=== PATIENT | female | born 1950 | race Hispanic/Latino ===

== ENCOUNTER 2017-11-29 12:37 | Emergency (ER) | payer MEDICARE, OTHER ==
[2017-11-29] MEDS ORDERED: Cyclobenzaprine 10 MG TAB ONE (13:32)
[2017-11-29] MEDS ORDERED: Ketorolac Tromethamine 30 MG/ML VIAL ONE (13:32)
--- NOTE | 2017-11-29 13:49 | RAD ---
2 VIEWS CERVICAL SPINE: Date: 11/29/17 INDICATION: Twisted neck too far trying to catch herself after losing her balance, now with neck pain. COMPARISON: None. FINDINGS: Cervical spine is evaluated to C7 vertebral level on the lateral projection. There is severe multilev el facet osteoarthritic change and disc degenerative disease seen involving the cervical spine. Preve rtebral soft tissues are normal appearing. Lateral masses are symmetric. Lung apices are clear. IMPRESSION: Severe multilevel spondylosis of the cervical spine. POS: [facility]
== END 2017-11-29 13:48 | disposition home or self-care (01) ==
LOC: ERS 12:37
DX: S16.1XXA Strain of muscle, fascia and tendon at neck level, initial encounter (principal); Z86.711 Personal history of pulmonary embolism; E78.00 Pure hypercholesterolemia, unspecified; I25.10 Atherosclerotic heart disease of native coronary artery without angina pectoris; M81.0 Age-related osteoporosis without current pathological fracture; W01.198A Fall on same level from slipping, tripping and stumbling with subsequent striking against other object, initial encounter
CPT/HCPCS: 72040; 96372; J1885

== ENCOUNTER 2018-03-28 07:50 | Outpatient (CLI) | payer MEDICARE, MEDICAID | END 2018-03-28 07:51 | disposition home or self-care (01) | LOC: BICMAMMO 07:50 | PROVIDERS: ATTEND Student in an Organized Health Care Education/Training Program | DX: Z13.820 Encounter for screening for osteoporosis (principal) | CPT/HCPCS: 77080 ==

== ENCOUNTER 2018-05-05 09:53 | Observation (INO) | payer MEDICARE, MEDICAID ==
[2018-05-05] MEDS ORDERED: ISOVUE-370 76%-LOCM 1 ML ONE (10:02)
[2018-05-05 10:29] LABS: #Basophils 0.1 thou/uL (0.0-0.2); #Eosinphils 0.3 thou/uL (0.0-0.7); #Lymphocytes 2.3 thou/uL (1.20-3.40); #Monocytes 0.7 thou/uL (0.11-0.59); #Neutrophils 4.4 thou/uL (1.40-6.50); %Basophils 0.8 % (0.0-1.0); %Eosinophils 3.4 % (0.0-10.0); %Lymphocytes 29.3 % (21.0-51.0); %Monocytes 9.2 % (0.0-10.0); %Neutrophils 57.3 % (42.0-75.0); Hemoglobin 13.9 g/dL (12.0-16.0); Mean Corpuscular HGB CONC 33.9 g/dL (32.0-36.0); Mean Corpuscular Hemoglobin 31.1 pg (27.0-31.0); Mean Corpuscular Volume 91.8 fL (78.0-98.0); Mean Platelet Volume 8.5 fL (7.4-10.4); Platelet Count 225 thou/uL (130-400); RBC Distribution Width 12.4 % (11.5-14.5); Red Blood Cell (RBC) Count 4.47 mill/uL (4.20-5.40); White Blood Cell (WBC) Count 7.7 thou/uL (4.8-10.8)
--- NOTE | 2018-05-05 10:48 | RAD ---
CHEST 1 VIEW: HISTORY: Chest pain and shortness of breath. COMPARISON: Chest radiograph 11/07/15. FINDINGS: Lungs are hypoinflated with vascular crowding. There left basilar airspace opacity. No pneumothorax . No acute osseous abnormality. IMPRESSION: 1. Left basilar airspace opacity. 2. Lung hypoinflation with vascular crowding. The left basilar opacity may reflect infection or pul monary vessels. If the patient is not having signs of pneumonia, a followup 2 views of the chest wit h full inspiration may be beneficial. POS: [facility]
[2018-05-05 10:49] LABS: CK (CPK) 89 U/L (29-168); Lipase 7 U/L (8-78)
[2018-05-05 10:52] LABS: CKMB 1.1 ng/mL (0-6.6); Troponin I Less than 0.010 ng/mL (< 0.028)
[2018-05-05] MEDS ORDERED: Ondansetron HCl/PF 4 MG/2 ML Vial ONE (10:57)
[2018-05-05] MEDS ORDERED: Nitroglycerin 2% Ointment 1 INCH/1 GM Packet ONE (10:57)
[2018-05-05 11:02] LABS: Bilirubin Negative (Negative); Blood, Urine Negative (Negative); Clarity CLOUDY (Clear); Glucose, Urine (Dipstick) Negative (Negative); Leukocyte Negative (Negative); Nitrite Negative (Negative); Protein, Urine (Dipstick) Negative (Neg-Trace); Specific Gravity, Urine 1.017 (1.002-1.036); Urobilinogen 0.2 mg/dL (0.2-1.0)
[2018-05-05 14:24] LABS: ALT (SGPT) 20 U/L (8-55); AST (SGOT) 15 U/L (5-34); Albumin 4.4 g/dL (3.4-4.8); Alkaline Phosphatase 103 U/L (40-150); Anion Gap 17 mmol/L (10-20); BUN (Urea Nitrogen) 14 mg/dL (9.8-20.1); Bilirubin, Total 0.5 mg/dL (0.2-1.2); Calc. Creatinine Clearance 0 mL/min (70-130); Calcium 9.9 mg/dL (7.8-10.44); Carbon Dioxide 21 mmol/L (23-31); Chloride 105 mmol/L (98-107); Estimated GFR-MDRD 58; Glucose 139 mg/dL (80-115); Potassium 3.9 mmol/L (3.5-5.1); Protein, Total 7.4 g/dL (6.0-8.3); Sodium 139 mmol/L (136-145)
--- NOTE | 2018-05-05 15:45 | CT ---
CTA THORAX UTILIZING IV CONTRAST AND 3D PROTOCOL WITH 3D REFORMATTED IMAGING: INDICATIONS: Left-sided chest pain. COMPARISON: Prior study, dated 10/11/2015. FINDINGS: No definite central or segmental pulmonary embolus is demonstrated. There is a stable right paratrac heal lymph node, measuring up to 1.5 cm. No focal consolidation or pleural effusion is evident. There is scarring involving the medial right lower lobe, due to prominent bulky marginal osteophytes involving the thoracic spine. There is aneurysmal dilatation of the distal aortic arch, measuring up to 3.2 cm, which is stable to the prior exam. The visualized upper abdomen reveals no definite acute abnormality. No definite acute osseous abnormality is evident. IMPRESSION: 1. No central or segmental pulmonary embolus demonstrated. 2. Stable nonspecific, mildly enlarged right paratracheal lymph node, measuring up to 1.5 cm. 3. Stable mild dilatation of the distal aortic arch, measuring up to 3.2 cm. 4. Stable scarring within the medial right lower lobe, likely related to prominent adjacent marginal osteophytes off the thoracic spine. POS: [facility]
[2018-05-05 15:51] LABS: CKMB 0.9 ng/mL (0-6.6); Troponin I Less than 0.010 ng/mL (< 0.028)
[2018-05-05] MEDS ORDERED: Acetaminophen 325 MG TAB PO PRN ×2 (19:23→21:13)
[2018-05-05] MEDS ORDERED: Ondansetron ODT 4 MG TAB SL PRN (19:23)
[2018-05-05] MEDS ORDERED: Ondansetron HCl/PF 4 MG/2 ML Vial IVP PRN ×3 (19:23→21:43)
[2018-05-05] MEDS ORDERED: Sodium Chloride 0.9% 1,000 ML IV SCH (19:23)
[2018-05-05 19:28] VITALS: BMI 41.7
[2018-05-05 20:08] LABS: Troponin I Less than 0.010 ng/mL (< 0.028)
[2018-05-05] MEDS ORDERED: Zolpidem Tartrate 5 MG TAB PO PRN (21:13)
[2018-05-05] MEDS ORDERED: Milk Of Magnesia 30 ML UDCUP PO PRN (21:13)
[2018-05-05] MEDS ORDERED: Senokot 8.6 MG TAB PO PRN (21:13)
[2018-05-05] MEDS ORDERED: Ondansetron ODT 4 MG TAB PO PRN ×2 (21:13→21:43)
[2018-05-05] MEDS ORDERED: Mag-Al 1200 mg/1200 mg/30 ML UDCUP PO PRN (21:13)
[2018-05-05] MEDS ORDERED: HYDROcodone/Acetaminophen 5/325 mg Tablet PO PRN (21:13)
[2018-05-05] MEDS ORDERED: hydrALAZINE 20 MG/ML VIAL SLOW IVP PRN (21:43)
[2018-05-05] MEDS ORDERED: cloNIDine 0.1 MG TAB PO PRN (21:43)
[2018-05-05] MEDS ORDERED: Ibuprofen 800 MG TAB PO PRN (21:43)
[2018-05-05] MEDS ORDERED: Acetaminophen 500 MG TAB PO PRN (21:43)
--- NOTE | 2018-05-06 04:26 | HP ---
DATE OF ADMISSION: 05/05/2018 PRIMARY CARE PROVIDER: Alicia rios. CHIEF COMPLAINT: Left shoulder pain. HISTORY OF PRESENT ILLNESS: This is a 68-year-old female who presents to [facility] complaining of left shoulder pain over the last several days prior to this evaluation . The patient denied any specific direct injury, trauma, fever, chills or increased activity level. The patient denied taking any home remedies for relief of pain. The patient states she is right sosa d dominant. The patient denied any specific chest pain, cough, congestion, or diaphoresis. The kaci ent admits to some history of various joint pains treated with [id number] remedies for relief. The patient does admit to some abdominal discomfort which is transient without associated vomiting o r diarrhea. The patient denied any specific dysuria or recent urinary tract infections. The patient denies taking any chronic medications and denies any recent procedures or surgeries. In the emergen cy room, the patient underwent general evaluation including chest imaging showing no acute process. CT angiogram of the chest was also performed, ruling out a pulmonary embolus. Screening metabolic king rvey was essentially unremarkable and patient received intravenous normal saline, Zofran, transdermal nitroglycerin and aspirin 324 mg. The patient was transferred to the observation unit for further e valuation. PAST MEDICAL HISTORY: 1. History of pulmonary embolism in 2014, on previous Coumadin therapy. 2. Hypertension. 3. Osteoarthritis. 4. Obesity. PAST SURGICAL HISTORY: 1. Status post cholecystectomy. 2. Status post ear surgery. CURRENT MEDICATIONS: Reviewed and negative. ALLERGIES: No known drug allergies. FAMILY HISTORY: Positive for diabetes mellitus. SOCIAL HISTORY: The patient resides in [place], [place]. Disabled. No current alcohol, tobacco or illi cit drug use. Functional of all activities of daily living. REVIEW OF SYSTEMS: The following complete review of systems was negative, unless otherwise mentioned in the HPI or below: Constitutional: Weight loss or gain, ability to conduct usual activities. Ski n: Rash, itching. Eyes: Double vision, pain. ENT/Mouth: Nose bleeding, neck stiffness, pain, tend erness. Cardiovascular: Palpitations, dyspnea on exertion, orthopnea. Respiratory: Shortness of b reath, wheezing, cough, hemoptysis, fever or night sweats. Gastrointestinal: Poor appetite, abdomin al pain, heartburn, nausea, vomiting, constipation, or diarrhea. Genitourinary: Urgency, frequency, dysuria, nocturia. Musculoskeletal: Pain, swelling. Neurologic/Psychiatric: Anxiety, depression. Allergy/Immunologic: Skin rash, bleeding tendency. Otherwise negative except as stated per HPI. PHYSICAL EXAMINATION: VITAL SIGNS: On admission, blood pressure 157/67, pulse 63, respiratory rate 24, temperature 97.6 de grees Fahrenheit, O2 saturation 100% on room air. GENERAL APPEARANCE: This is a 68-year-old female, smiling, alert, in no acute distress. HEENT: Pupils are equal, round, and reactive to light and accommodation. Extraocular muscles are in tact. No scleral icterus, no conjunctival injection. Nares patent. OP is clear. Teeth in fair rep air. NECK: Supple, no cervical adenopathy, no thyromegaly, no carotid bruits, no JVD appreciated. Cervic al spine with full active and passive range of motion. No meningeal signs appreciated. CHEST: Lungs are clear to auscultation bilaterally. CARDIOVASCULAR: S1, S2, without noted murmur, rub or gallop. ABDOMEN: Rounded, soft, nontender, nondistended. Bowel sounds are positive in all four quadrants. There is no hepatosplenomegaly, no abdominal bruits, no rebound or guarding appreciated. EXTREMITIES: Warm and dry with fair turgor. No clubbing, cyanosis or asymmetric edema appreciated. Right hand dominant. Positive tenderness to palpation in the left shoulder girdle anteriorly and po steriorly. No palpable mass. Diminished passive and active range of motion in abduction and flexion . Neurovascularly intact distally. NEUROLOGIC: Cranial nerves II-XII are grossly intact. No focal or lateralizing signs appreciated. PERTINENT LABORATORY AND X-RAY FINDINGS: Basic metabolic profile within normal limits. LFTs within normal limits. Total CK 89, troponin I negative x3. BNP 55. Lipase 7. CBC within normal limits. Urinalysis negative. Portable chest x-ray dated 05/05/2018 showed no acute cardiopulmonary process. CT angiogram of the chest dated 05/05/2018 showed no evidence for pulmonary embolus. Mildly enlarge d right paratracheal lymph node. Mild dilation of the distal aortic arch up to 3.2 cm. Scarring wit hin the medial right lower lobe. EKG dated 05/05/2018 by my interpretation shows sinus mechanism wit h heart rates in the 80s. Normal R-wave progression noted in the precordial leads. Normal axis. No acute ST-T wave changes appreciated. ASSESSMENT AND PLAN: 1. Left shoulder pain. Suspect bicipital tendinitis. We will initiate ibuprofen 800 mg p.o. t.i.d. p.r.n. General range of motion exercises. Consider alternating ice and heat therapy. Education an d reassurance. 2. Elevated blood pressure. We will continue serial blood pressure monitoring. Currently no specif ic outpatient regimen for hypertension. 3. Prophylaxis. Sequential compression devices while in bed. Pepcid 20 mg p.o. b.i.d. 4. Code status is FULL. Surrogate medical decision maker is the patient's daughter.
[2018-05-06] MEDS ORDERED: Aspirin 325 MG TAB PO SCH (09:00)
[2018-05-06] MEDS ORDERED: Famotidine 20 MG TAB PO SCH ×2 (09:00)
[2018-05-06] MEDS ORDERED: Ketorolac Tromethamine 30 MG/ML VIAL IVP PRN (10:01)
[2018-05-06] MEDS ORDERED: Acetaminophen/Codeine 30-300mg Tablet PO PRN ×2 (11:46)
[2018-05-06 12:07] VITALS: BP 132/69; TEMP 98.2
--- NOTE | 2018-05-06 12:12 | RAD ---
LEFT SHOULDER 3 VIEWS: Date: 05/06/18 HISTORY: Left shoulder pain. FINDINGS/IMPRESSION: There are degenerative changes in the acromioclavicular joint. No fracture, dislocation, or bony dest ruction is identified. POS: [facility]
--- NOTE | 2018-05-06 14:27 | CON ---
DATE OF CONSULTATION: 05/06/2018 HISTORY OF PRESENT ILLNESS: We were asked by Hospitalist Service, Dr. Bella to evaluate the patient. She came into the hospital for what was thought chest pain, but it was found that she had more shoulder pain than chest pain. The patient is and speaks only a little bit of Faroese. We used the translation service to talk about her shoulder. She states the pain started over the last few days. No specific injury. She denies injuring her shoulder in the past. It just started. She did tell me she has some osteoporosis, but had not had this level of pain before. She denies any numbness, tingling in her left hand. She is a right hand dominant. PAST MEDICAL HISTORY: PE, hypertension, osteoarthritis, osteoporosis, obesity. PAST SURGICAL HISTORY: Cholecystectomy, some form of ear surgery. FAMILY HISTORY: Positive for diabetes. SOCIAL HISTORY: Lives in [place]. She is disabled. No alcohol or nicotine products. MEDICATIONS: She takes hypertension medication and OTC medications otherwise no other medications. REVIEW OF SYSTEMS: Denies any chest pain, shortness of breath. Mostly complains of left upper extremity shoulder pain. PHYSICAL EXAMINATION: GENERAL: Well-nourished female, resting in chair, in no acute distress. Speech clear. Affect pleasant. Answers questions appropriately per pipe fittings molder , oriented x3. HEENT: Normal exam. Face symmetric, tongue midline. NECK: Supple. Range of motion is okay. UPPER EXTREMITIES: She has good sensations bilateral in upper extremities as she has good pulses, equal size, shape, symmetry, normal bulk and tone. She is unable due to pain to move her left upper extremity, she can move it minutely at best. Palpation of the shoulder is tender throughout. She has no redness or increased warmth appreciated to either shoulder. ASSESSMENT: Left shoulder pain. X-ray showed some osteoarthritis and some degenerative joint disease. PLAN: I spoke with patient again via pipe fittings molder. I am going to get her into a sling, try some heat, ice and some physical therapy. I added Meloxicam 15 mg every day, started her on some Tylenol with codeine to see if that will help with the pain. She understands the plan. What we would like her to do is follow up with our [facility] in 10-14 days for followup. I spoke with Dr. Bella and he will try and get outpatient physical therapy going for her also and this may be more helpful for her. The patient understands the plan as discussed and hopefully with the changes in some of her medications, therapy and sling, we will calm down her pain get her moving again. This is Dallas Olson PA-C dictating for Dr. Ryan Ann. GRANT
--- NOTE | 2018-05-06 18:32 | DIS ---
DATE OF DISCHARGE: 05/06/2018 DISCHARGE DISPOSITION: Home. FOLLOWUP: 1. Follow up with primary care physician at [facility] in 1 week. 2. Follow up with Dr. Galan next week. ALLERGIES: No known drug allergies. Patient was seen on the day of discharge, denies any new complaints. BRIEF HOSPITAL COURSE: The patient is a 68-year-old female with hypertension and pulmonary embolism in the past, presented to the emergency room with left shoulder pain. Please refer to the history an d physical for further details. The patient was admitted with a diagnosis of atypical chest pain/shoulder pain. Troponins were negat alfa. Her D-dimer was 0.53. CT angiogram of the chest was negative for pulmonary embolism. Left pritesh ulder x-ray showed degenerative changes in the acromioclavicular joint. The patient was evaluated by Orthopedics. Left arm sling has been arranged. Meloxicam has been started with some Tylenol as nee ded. She will continue heat, ice, and physical therapy has been arranged. The patient will follow u p with [facility] as outpatient. Stress test was not done. She was advised to contact [facility] to set up outpatient stress test. FINAL DIAGNOSES: 1. Atypical chest pain. Troponins were negative. 2. Left shoulder pain, suspected rotator cuff tear versus frozen shoulder. 3. Hypertension. 4. History of pulmonary embolism in the past. 5. Morbid obesity with body mass index 41.8. 6. Chronic kidney disease stage 3. 7. Nonspecific mildly enlarged right paratracheal lymph node measuring up to 1.5 cm. Primary care p hysician advised to follow. 8. Mild dilatation of the distal aortic arch measuring up to 3.2 cm. Primary care physician advised to follow. Plan of care was discussed with the patient in detail. She stated understanding.
[2018-05-07] MEDS ORDERED: Meloxicam 15 MG TAB PO SCH (09:00)
--- NOTE | 2018-05-07 12:57 | EKG ---
Test Reason : Blood Pressure : / mmHG Vent. Rate : 081 BPM Atrial Rate : 081 BPM P-R Int : 136 ms QRS Dur : 098 ms QT Int : 370 ms P-R-T Axes : 032 -04 034 degrees QTc Int : 429 ms Normal sinus rhythm Normal ECG Confirmed by CONNIE MORRISON MD ([id number]), managing editor RANDALL VITALE ([id number]) on 05/07/2018 12:56:48 PM Referred By: Confirmed By:CONNIE MORRISON MD
== END 2018-05-06 14:40 | disposition home or self-care (01) ==
LOC: ERS 09:53 → 2SW 19:06
PROVIDERS: ADMIT Internal Medicine; ATTEND Internal Medicine
DX: R07.89 Other chest pain (principal); M25.512 Pain in left shoulder; E66.01 Morbid (severe) obesity due to excess calories; I12.9 Hypertensive chronic kidney disease with stage 1 through stage 4 chronic kidney disease, or unspecified chronic kidney disease; N18.3 Chronic kidney disease, stage 3 (moderate); Z68.41 Body mass index [BMI] 40.0-44.9, adult; Z86.711 Personal history of pulmonary embolism
CPT/HCPCS: 71045; 71275; 73030; 80053; 81003; 82550; 82553 ×2; 83690; 83880; 84484 ×2; 85025; 85379; 93005; 94760; 96361; 96374; 99285; G0378; 36415; 96360; A4216; J1885; J2405

== ENCOUNTER 2018-09-30 17:45 | Observation (INO) | payer MEDICARE, MEDICAID ==
[~2018-09-30 17:45] MED LIST: ISOVUE-370 76%-LOCM 1 ML ONE
[2018-09-30 18:31] LABS: #Basophils 0.1 thou/uL (0.0-0.2); #Eosinphils 0.3 thou/uL (0.0-0.7); #Lymphocytes 2.8 thou/uL (1.20-3.40); #Monocytes 0.8 thou/uL (0.11-0.59); #Neutrophils 4.8 thou/uL (1.40-6.50); %Basophils 0.8 % (0.0-1.0); %Lymphocytes 31.6 % (21.0-51.0); %Monocytes 9.6 % (0.0-10.0); %Neutrophils 55.1 % (42.0-75.0); Mean Corpuscular HGB CONC 33.1 g/dL (32.0-36.0); Mean Corpuscular Hemoglobin 30.9 pg (27.0-31.0); Mean Corpuscular Volume 93.2 fL (78.0-98.0); Mean Platelet Volume 7.9 fL (7.4-10.4); Platelet Count 266 thou/uL (130-400); RBC Distribution Width 12.2 % (11.5-14.5); Red Blood Cell (RBC) Count 4.53 mill/uL (4.20-5.40); White Blood Cell (WBC) Count 8.7 thou/uL (4.8-10.8)
[2018-09-30 18:51] LABS: ALT (SGPT) 19 U/L (8-55); AST (SGOT) 18 U/L (5-34); Albumin 4.2 g/dL (3.4-4.8); Alkaline Phosphatase 110 U/L (40-150); Anion Gap 15 mmol/L (10-20); BUN (Urea Nitrogen) 18 mg/dL (9.8-20.1); Bilirubin, Total 0.3 mg/dL (0.2-1.2); CK (CPK) 103 U/L (29-168); Calc. Creatinine Clearance 0 mL/min (70-130); Calcium 9.9 mg/dL (7.8-10.44); Carbon Dioxide 23 mmol/L (23-31); Chloride 105 mmol/L (98-107); Estimated GFR-MDRD 61; Glucose 101 mg/dL (80-115); Lipase 12 U/L (8-78); Potassium 3.8 mmol/L (3.5-5.1); Protein, Total 7.2 g/dL (6.0-8.3); Sodium 139 mmol/L (136-145)
--- NOTE | 2018-09-30 19:47 | RAD ---
PORTABLE UPRIGHT FRONTAL CHEST RADIOGRAPH 09/30/18 COMPARISON: 05/05/18. HISTORY: Chest pain. FINDINGS: No pneumothorax, pleural fluid, focal consolidation, or alveolar edema. Heart and mediastinal contour s are unremarkable. IMPRESSION: No acute findings. POS: [facility]
[2018-09-30] MEDS ORDERED: Ondansetron PF 4 MG/2 ML Vial IVP PRN (20:50)
[2018-09-30] MEDS ORDERED: Acetaminophen 325 MG TAB PO PRN (20:50)
[2018-09-30 22:03] LABS: Troponin I Less than 0.010 ng/mL (< 0.028)
--- NOTE | 2018-09-30 22:27 | HP ---
PRIMARY CARE DOCTOR: The patient has no primary care doctor. CODE STATUS: Full code. TIME OF EVALUATION: 8:45 p.m. CHIEF COMPLAINT: Chest pain. HISTORY OF PRESENT ILLNESS: This is a 68-year-old female patient with no significant past medical history other than obesity, came to the hospital after having chest pain. Has been on and off for the past few days. No clear triggers. No alleviating factors. She reported that she has associated palpitation symptoms and rated like 4/10. I should note that the patient has to check if her blood is reaching her heart, we will do a chest pain workup and adjust treatment accordingly. REVIEW OF SYSTEMS: CONSTITUTIONAL: No fever, chills, or generalized weakness. RESPIRATORY: No cough, sputum production, or shortness of breath. CARDIOVASCULAR: The patient has chest pain as discussed in HPI and palpitations. GASTROINTESTINAL: The patient has occasional nausea. No vomiting, diarrhea, or abdominal pain. BLISTER PACKING MACHINE TENDER: No dizziness, headache, or feeling lightheaded. GENITOURINARY: No burning on urination. EXTREMITIES: No leg swelling. All other systems were reviewed and negative except for the findings as mentioned above. PAST MEDICAL HISTORY: Positive for obesity, osteoporosis, possible high cholesterol. PAST SURGICAL HISTORY: Ear surgery, mass removal. PSYCH HISTORY: No previous psych history. SOCIAL HISTORY: Lives with family. No drugs or alcohol. No smoking history. FAMILY HISTORY: Father and mother both suffer from diabetes. ALLERGIES: NO KNOWN DRUG ALLERGIES REPORTED. MEDICATIONS: None. PHYSICAL EXAMINATION: VITAL SIGNS: On presentation, blood pressure 146/84 with heart rate 75, respiratory rate was 18, temperature 98.2, pain 0/10, oxygen saturation was 97. PHYSICAL EXAMINATION: GENERAL APPEARANCE: The patient is alert, oriented, not in acute distress. HEENT: Eyes, normal conjunctivae. Moist oral mucosa. Anicteric. No JVD. RESPIRATORY: Bilateral air entry. No rales. No wheezes. Symmetric expansion. CARDIOVASCULAR: Normal rate, regular rhythm. No murmurs, no gallops. No edema. ABDOMEN: Soft. Normal bowel sounds. MUSCULOSKELETAL: Baseline range of motion and strength. No tenderness. SKIN: Warm, intact. No pallor. No rash. No redness. Peripheral pulses are present. Capillary refill seems to be intact. NEUROLOGIC: No evidence of any new focal weakness. Baseline speech. Cranial nerves seems to be intact. PSYCH: The patient is in good mood. No anxiety. Optimal judgment. DIAGNOSTIC DATA: EKG was reviewed. The patient has normal sinus rhythm with a rate of 77, QT corrected 130, PA 182, QRS 90. No evidence of any acute ischemic event on the EKG, was reviewed by myself. The chest x-ray was reviewed. This was reported as having no acute findings. The CT angio was reviewed. No evidence of any significant pulmonary embolism on the CT scan. LABORATORY DATA: Labs were reviewed. White count 8.7, hemoglobin 14, MCV 93.2, platelet count 266. D-dimer 0.49. Chemistries; sodium 139, potassium 3.8, chloride 105, carbon dioxide 23, anion gap 15, BUN 18, creatinine 0.91, GFR 61, glucose 101, calcium 9.9, total bilirubin 0.3, AST 18, ALT is 19, alkaline phosphatase 110. CK 103. Troponin was negative. Beta-natriuretic peptide is 58.2. Albumin 4.2, globulin 3.0, albumin to globulin ratio 1.4, lipase 12. ASSESSMENT AND PLAN: The patient presented to the hospital with following medical problems: 1. Chest pain, rule out acute coronary syndrome. The patient has history of hyperlipidemia and obesity, has been in the past to examine her circulation in the heart as per patient's report. We will trend troponins. Monitor on tele. We will do a stress test in the morning, further treatment depending on initial workup results. 2. Obesity. Advised to lose weight. 3. Hyperlipidemia. Low-cholesterol diet is advised. 4. Deep venous thrombosis prophylaxis. Job ID: [id number]
[2018-09-30] MEDS: Famotidine 20 MG TAB PO SCH (22:39)
--- NOTE | 2018-09-30 22:39 | CT ---
CT ANGIOGRAM CHEST: 09/30/18 COMPARISON: 05/05/18, 10/11/15, 06/21/15, 11/30/10. HISTORY: Two day history of chest pain, assess for pulmonary embolism. TECHNIQUE: Axial CT imaging obtained at 2.5 mm intervals through the chest with IV contrast using CT angiogram p rotocol with coronal and sagittal 3D reformatted imaging. FINDINGS: Postoperative clips noted in the gallbladder fossa consistent with prior cholecystectomy. Colonic div erticulosis of the splenic flexure noted. Small sliding type hiatal hernia present. No pleural, peric ardial, or mediastinal fluid is evident aside from trace fluid in the superior pericardial recess. No axillary, hilar or mediastinal lymphadenopathy. No pulmonary arterial filling defect seen to suggest the presence of acute pulmonary embolism. Stable linear density in medial right lower lobe suggests scar and/or volume loss. No pneumothorax on either side. 3-4 mm nodule noted in lingula on axial image 81, stable. There is a nodule in the right lower lobe o n image 97 measuring 6 mm, present on 05/05/18 exam but not definitively seen on the 10/11/15 exam. Vang liz, this does appear present on the 06/21/15 exam. No acute osseous abnormality is seen. IMPRESSION: Numerous incidental findings as detailed above, stable. No acute findings - no evidence for pulmonary arterial embolism. POS: [facility]
[2018-09-30 22:50] VITALS: BMI 41.0
[2018-10-01 00:59] LABS: Troponin I Less than 0.010 ng/mL (< 0.028)
[2018-10-01 05:52] LABS: #Basophils 0.1 thou/uL (0.0-0.2); #Eosinphils 0.3 thou/uL (0.0-0.7); #Lymphocytes 2.6 thou/uL (1.20-3.40); #Monocytes 0.8 thou/uL (0.11-0.59); %Basophils 1.2 % (0.0-1.0); %Eosinophils 3.6 % (0.0-10.0); %Lymphocytes 32.8 % (21.0-51.0); %Monocytes 10.3 % (0.0-10.0); Hemoglobin 13.7 g/dL (12.0-16.0); Mean Corpuscular HGB CONC 32.7 g/dL (32.0-36.0); Mean Corpuscular Hemoglobin 30.6 pg (27.0-31.0); Mean Corpuscular Volume 93.5 fL (78.0-98.0); Mean Platelet Volume 8.5 fL (7.4-10.4); Platelet Count 257 thou/uL (130-400); RBC Distribution Width 12.2 % (11.5-14.5); Red Blood Cell (RBC) Count 4.48 mill/uL (4.20-5.40); White Blood Cell (WBC) Count 7.8 thou/uL (4.8-10.8)
[2018-10-01 06:08] LABS: Anion Gap 14 mmol/L (10-20); BUN (Urea Nitrogen) 17 mg/dL (9.8-20.1); Calc. Creatinine Clearance 102 mL/min (70-130); Calcium 9.9 mg/dL (7.8-10.44); Carbon Dioxide 25 mmol/L (23-31); Chloride 105 mmol/L (98-107); Estimated GFR-MDRD 65; Glucose 88 mg/dL (80-115); Potassium 3.8 mmol/L (3.5-5.1); Sodium 140 mmol/L (136-145)
[2018-10-01] MEDS ORDERED: Enoxaparin Sodium 40 MG/0.4 ML SYRINGE SC SCH (09:00)
[2018-10-01] MEDS: Famotidine 20 MG TAB PO SCH (10:37)
[2018-10-01 12:09] VITALS: BP 115/65; TEMP 97.5
--- NOTE | 2018-10-01 13:24 | NM ---
CARDIAC SPECT: HISTORY: A 68-year-old female with chest pain. TECHNIQUE: A myocardial perfusion scan was performed using the single isotope one-day protocol with technetium 9 9m sestamibi, and 11 millicuries was injected intravenously for the rest exam, followed by 33 millicu bobbi for the stress study. Pharmacologic stress with adenosine was monitored and interpreted by Dana chris NP. FINDINGS: Homogeneous tracer distribution is seen in the myocardial segments on stress and rest images, without fixed or reversible defects. GATED SPECT LVEF: 71% WALL MOTION EXAM: Normal. IMPRESSION: Normal myocardial perfusion scan. POS: [facility]
[2018-10-01] MEDS ORDERED: ADENOSINE 60 MG/20 ML VIAL ONE (15:00)
--- NOTE | 2018-10-05 00:04 | EKG ---
Test Reason : Blood Pressure : / mmHG Vent. Rate : 077 BPM Atrial Rate : 077 BPM P-R Int : 162 ms QRS Dur : 090 ms QT Int : 380 ms P-R-T Axes : 052 -14 026 degrees QTc Int : 430 ms Normal sinus rhythm Normal ECG Confirmed by ANGELINA MILLER, [place] ([id number]), editor continuity and script RANDALL VITALE ([id number]) on 10/05/2018 12:04:09 AM Referred By: Confirmed By:CHEYENNE ALFARO MD
== END 2018-10-01 14:22 | disposition home or self-care (01) ==
LOC: ERS 17:45 → 2SW 20:20
PROVIDERS: ADMIT Hospitalist; ATTEND Hospitalist
DX: R07.9 Chest pain, unspecified (principal); E66.9 Obesity, unspecified; Z68.41 Body mass index [BMI] 40.0-44.9, adult; E78.00 Pure hypercholesterolemia, unspecified; M81.0 Age-related osteoporosis without current pathological fracture; Z98.890 Other specified postprocedural states; Z79.899 Other long term (current) drug therapy
CPT/HCPCS: 71045; 71275; 78452; 80048; 80053; 82550; 83690; 83880; 84484 ×3; 85025 ×2; 85379; 93005; 93017; 99285; A9500; G0378 ×2; 36415; J0153; Q9966